=== PATIENT | male | born 1980 | race Caucasian/White ===

== ENCOUNTER 2023-05-16 13:04 | Emergency (ER) | payer MEDICAID, SELFPAY ==
[2023-05-16 13:05] VITALS: BP 135/97; PULSE 74; RESP 16; TEMP 36.8; O2SAT 94
--- NOTE | 2023-05-16 13:36 | EDS_ITS ---
HPI History of Present Illness Chief Complaint: Dental Detail of Chief Complaint: Lower right dental pain Informant: patient Onset/Context/Timing Onset: Weeks (2 weeks) Context: Sudden Onset Timing: Continuous Quality: Pain Location: Right lower teeth Current Severity: Mild Maximum Severity: Severe Worsened by: Chewing Relieved by: NSAIDs, Topicals and - (Cold water) Associated Symptoms Assocated Symptom - Dental: Negative for fever, jaw swelling, face swelling, cold sensitivity or hot sensitivity Narrative Narrative: Patient is a 42-year-old male who presents with dental pain that started 2 weeks ago. Set up an appointment to see dentist May 29. He denies fever, chills night sweats. He denies history medic fever, heart murmur, SBE. He is not on immunosuppressive meds. He states he has not been on immunosuppressive meds since 1992. 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 He denies change in voice. Denies drooling. Denies difficulty opening or closing his mouth completely. Prior similar symptoms: No Recent Illness/Hospitalization: No PFSH PFSH Medical History Pain, dental Home Medications gabapentin 100 mg capsule 100 mg PO TID PRN 02/21/23 [History Last Taken Unknown] meloxicam 15 mg tablet 15 mg PO DAILY 02/21/23 [History Last Taken Unknown] azithromycin 250 mg tablet 250 mg PO DAILY #4 TABLETS 05/16/23 [Rx Last Taken Unknown] hydrocodone-acetaminophen 5-325mg 5mg-325mg 1 tab PO Q6H PRN PRN Pain 3 days #10 TABLETS 05/16/23 [Rx Last Taken Unknown] naproxen 500 mg tablet 500 mg PO BID #14 tabs 05/16/23 [Rx Last Taken Unknown] Allergy/AdvReac Type Severity Reaction Status Date / Time Penicillins Allergy Unknown Verified 02/21/23 10:27 Family History Father , at age 54 Myocardial infarction Surgical History History of liver transplant Social History (Updated 05/16/23 @ 13:[address] Josef Estevez MD) household members: significant other Smoking Status: Current every day smoker tobacco type: cigarettes Tobacco: How many years used: 20 alcohol intake: never ROS ROS ED Constitutional Constitutional ED: Denies chills, fever(s), subjective, sweats or weight loss Eyes Eyes: Denies blurry vision or change in vision ENT ENT ED: Denies ear pain, rhinorrhea or sore throat Cardiovascular Cardiovascular: Denies chest pain or palpitations Respiratory/Chest Respiratory/Chest: Denies cough, dyspnea or dyspnea on exertion Gastrointestinal Gastrointestinal: Denies nausea or vomiting Musculoskeletal Musculoskeletal: Denies arthralgias, myalgias or neck pain Neurologic Neurologic: Denies headache(s) or weakness Hematologic/Lymphatic Hematologic/Lymphatic: Denies easy bleeding or easy bruising Allergic/Immunologic Allergic/Immunologic ED: Denies mouth swelling or tongue swelling EXAM Physical Exam Const Vital Signs: 05/16/23 13:05 Temperature 98.2 F Temperature Source Temporal Pulse Rate 74 Respiratory Rate 16 Blood Pressure 135/97 H Blood Pressure Mean 109 Pulse Ox 94 Oxygen Delivery Method Room Air Positive well nourished and well developed General Appearance ED: well developed and NAD HEENT HEENT Narrative: Head is atraumatic normocephalic. Ears are normal. Nares patent with no discharge. Posterior pharynx out erythema or exudate. Patient has significant dental disease with numerous caries and evidence of gingivitis and periodontal disease. There is notably no the tongue. There is no concern for Ludewig's angina. There is no dysphonia. There is no drooling. Mouth ED: Yes oral and palatal mucosa abnormal Mouth: oral and palatal mucosa abnormal Teeth and Gingiva: abnormal tooth and associated gingiva, caries, gingiva abnormal, poor dentition and teeth discoloration Throat: posterior oropharynx normal Eyes PERRL and EOMs intact bilaterally General Eye ED: Negative for pale conjunctiva or scleral icterus Neck no lymphadenopathy, supple and no JVD General: normal visual inspection; Negative for anterior neck swelling, t enderness or submandibular swelling Resp normal respiratory effort, no retractions and clear to auscultation bilaterally Cardio regular rate, regular rhythm, S1 normal heart sound, S2 normal heart sound and no murmurs Extremity normal to inspection and no joint enlargement Neuro oriented x3, CN's II-XII intact bilaterally and moves all extremities Sensorium / Orientation: alert Psych mental status grossly normal Skin no rashes or lesions noted and no wounds MDM MDM MDM Narrative Medical decision making narrative: Patient has numerous dental caries. Since he is recipient a liver transplant will place on antibiotics and oral analgesics. Patient was instructed return if unable of his mouth completely, drooling, change in voice or difficulty swallowing or breathing. History & Record Review Discussion w/independent historian: Patient and Significant other Additional record(s) reviewed:: Prior outpatient record (Herniated nucleus pulposus L3-L4 Per Dr. Bimal Rodriguez's office note.) Discharge Plan Triage Chief Complaint: Dental ED Provider: Josef Estevez Dx/Rx/DC Orders Clinical Impression: Dental caries extending into pulp, Dental caries extending into dentine Instructions: ED Dental Pain Prescriptions: New azithromycin [azithromycin] 250 mg tablet 250 mg PO DAILY Qty: 4 0RF hydrocodone-acetaminophen [hydrocodone-acetaminophen] 5-325 mg tablet 1 tab PO Q6H PRN PRN (Reason: Pain) 3 Days Qty: 10 0RF naproxen 500 mg tablet 500 mg PO BID Qty: 14 0RF No Action gabapentin 100 mg capsule 100 mg PO TID PRN meloxicam 15 mg tablet 15 mg PO DAILY Primary Care Provider: Care Physician,No Primary Referrals: NOT,DEFINED [Non-Staff] - Dentist,Your [STAFF PHYSICIAN] - Keep Jeffy appointment Disposition Disposition: Home, Self Care
[2023-05-16] MEDS: Azithromycin 250 MG Tablet 500 MG PO (13:42)
[2023-05-16] MEDS: Naproxen 250 MG Tablet 500 MG PO (13:42)
[2023-05-16] MEDS: HYDROcodone Bitartrate/Apap 5/325 Tablet PO (13:42)
== END 2023-05-16 13:48 | disposition home or self-care (01) ==
PROVIDERS: Emergency Provider Emergency Medicine; Visit Provider Emergency Medicine
DX: K02.9 Dental caries, unspecified (principal); Z94.4 Liver transplant status; F17.210 Nicotine dependence, cigarettes, uncomplicated; K05.10 Chronic gingivitis, plaque induced; K05.6 Periodontal disease, unspecified
CPT/HCPCS: 99283